=== PATIENT | female | born 1960 | race American Indian/Alaskan Native ===

== ENCOUNTER 2021-01-26 06:44 | Inpatient (IN) | payer OTHER ==
[2021-01-26] MEDS ORDERED: METOCLOPRAMIDE 10 MG/2 ML INJ IV ONE (09:50)
[2021-01-26] MEDS ORDERED: FAMOTIDINE 20 MG/2 ML INJ IV ONE (09:50)
[2021-01-26] MEDS ORDERED: DICYCLOMINE 20 MG TAB PO ONE (09:50)
[2021-01-26] MEDS ORDERED: SODIUM CHLORIDE 0.9% 1000 ML 1,000 ML IV ONE (09:50)
[2021-01-26] MEDS ORDERED: diphenhydrAMINE 50 MG/ML VIAL IV ONE (09:50)
[2021-01-26 11:41] LABS: Hematocrit 38.5 % (30.3-42.9); Hemoglobin 12.8 gm/dl (10.1-14.3); Mean Corpuscular HGB Conc 33 % (30-34); Mean Corpuscular Volume 83 fl (79-97); Platelet Count 218 K/mm3 (140-440); Red Blood Count 4.62 M/mm3 (3.65-5.03); Red Cell Distribution Width 13.5 % (13.2-15.2)
--- NOTE | 2021-01-26 12:11 | Emergency Department Report ---
ED Abdominal Pain HPI - General Chief Complaint: Abdominal Pain Stated Complaint: ABDOMINAL PAIN Time Seen by Provider: 01/26/21 09:35 Source: patient Mode of arrival: Ambulatory Limitations: No Limitations - History of Present Illness Initial Comments: This is a 60-year-old female nontoxic, well nourished in appearance, no acute signs of distress presents to the ED with c/o of nausea and abdominal pain several days. Patient denies any vomiting. Patient describes abdominal pain as cramping and aching with level of 8/10 diffuse. Patient denies chest pain, short of breath, fever, hemoptysis, blood in stool, chills, headache, stiff neck, numbness or tingling. Patient denies any diarrhea or constipation. Denies any blood in stool. Patient denies any recent travels. Patient denies any allergies. MD Complaint: abdominal pain -: days(s) Location: diffuse Radiation: none Migration to: no migration Severity: mild Severity scale (0 -10): 8 Quality: cramping, aching Consistency: constant Improves With: nothing Worsens With: nothing Associated Symptoms: nausea. denies: vomiting, diarrhea, fever, chills, constipation, dysuria, hematemesis, hematochezia, melena, hematuria, anorexia, syncope - Related Data Allergies Allergy/AdvReac Type Severity Reaction Status Date / Time No Known Allergies Allergy Unverified 01/26/21 06:51 ED Review of Systems ROS: Stated complaint: ABDOMINAL PAIN Other details as noted in HPI Comment: All other systems reviewed and negative Constitutional: denies: chills, fever Eyes: denies: eye pain, eye discharge, vision change ENT: denies: ear pain, throat pain Respiratory: denies: cough, shortness of breath, wheezing Cardiovascular: denies: chest pain, palpitations Endocrine: no symptoms reported Gastrointestinal: abdominal pain, nausea. denies: vomiting, diarrhea, constipation, hematemesis, melena, hematochezia Genitourinary: denies: urgency, dysuria, discharge Musculoskeletal: denies: back pain, joint swelling, arthralgia Skin: denies: rash, lesions Neurological: denies: headache, weakness, paresthesias Psychiatric: denies: anxiety, depression Hematological/Lymphatic: denies: easy bleeding, easy bruising ED Past Medical Hx - Past Medical History Previous Medical History?: Yes Hx Hypertension: Yes - Surgical History Additional Surgical History: tubal ligation - Social History Smoking Status: Current Every Day Smoker ED Physical Exam - General Limitations: No Limitations General appearance: alert, in no apparent distress - Head Head exam: Present: atraumatic, normocephalic - Eye Eye exam: Present: normal appearance - Neck Neck exam: Present: normal inspection, full ROM. Absent: lymphadenopathy - Respiratory Respiratory exam: Present: normal lung sounds bilaterally. Absent: respiratory distress, wheezes, rales, rhonchi, stridor, chest wall tenderness, accessory muscle use, decreased breath sounds, prolonged expiratory - Cardiovascular Cardiovascular Exam: Present: regular rate, normal rhythm, tachycardia, normal heart sounds. Absent: irregular rhythm, systolic murmur, diastolic murmur, rubs, gallop - GI/Abdominal GI/Abdominal exam: Present: soft, tenderness (Diffuse), normal bowel sounds. Absent: distended, guarding, rebound, rigid, diminished bowel sounds - Extremities Exam Extremities exam: Present: normal inspection, full ROM - Back Exam Back exam: Present: normal inspection, full ROM. Absent: tenderness, CVA tenderness (R), CVA tenderness (L), muscle spasm, paraspinal tenderness, vertebral tenderness, rash noted - Neurological Exam Neurological exam: Present: alert, oriented X3, normal gait - Psychiatric Psychiatric exam: Present: normal affect, normal mood - Skin Skin exam: Present: warm, dry, intact, normal color. Absent: rash ED Course Vital Signs 01/26/21 06:52 Temperature 97.8 F Pulse Rate 120 H Respiratory 18 Rate Blood Pressure 147/91 O2 Sat by Pulse 100 Oximetry - Reevaluation(s) Reevaluation #1: 01/26/21 12:10 Patient is speaking in full sentences with no signs of distress noted. - Consultations Consultation #1: 01/26/21 13:54 Patient has been consulted with Dr. Caryl V about patient history, physical exam, and labs/imaging results and accepts patient to services. ED Medical Decision Making - Lab Data Result diagrams: 01/26/21 10:40 01/26/21 10:40 Lab Results 01/26/21 01/26/21 Range/Units 10:40 10:40 WBC 20.4 H (4.5-11.0) K/mm3 RBC 4.62 (3.65-5.03) M/mm3 Hgb 12.8 (10.1-14.3) gm/dl Hct 38.5 (30.3-42.9) % MCV 83 (79-97) fl MCH 28 (28-32) pg MCHC 33 (30-34) % RDW 13.5 (13.2-15.2) % Plt Count 218 (140-440) K/mm3 Sodium 140 (137-145) mmol/L Potassium 4.3 (3.6-5.0) mmol/L Chloride 98.4 (98-107) mmol/L Carbon Dioxide 28 (22-30) mmol/L Anion Gap 18 mmol/L BUN 21 H (7-17) mg/dL Creatinine 1.3 H (0.6-1.2) mg/dL Estimated GFR 51 ml/min BUN/Creatinine Ratio 16 % Glucose 129 H (65-100) mg/dL Calcium 9.6 (8.4-10.2) mg/dL Total Bilirubin 1.00 (0.1-1.2) mg/dL AST 19 (5-40) units/L ALT 17 (7-56) units/L Alkaline Phosphatase 126 (35-129) units/L Total Protein 8.6 H (6.3-8.2) g/dL Albumin 4.4 (3.9-5) g/dL Albumin/Globulin Ratio 1.0 % Lipase 15 (13-60) units/L - Radiology Data [facility] [address] [place] [address] Cat Scan Report Signed Patient: ELLEN RANGEL MR#: [id number] 1 : 1960 Acct:[id number] Age/Sex: 60 / F ADM Date: 01/26/21 Loc: ED Attending Dr: Ordering Physician: YESENIA BAXTER NP Date of Service: 01/26/21 Procedure(s): CT abdomen pelvis w con Accession Number(s): [id number] cc: YESENIA BAXTER NP CT ABDOMEN AND PELVIS WITH CONTRAST HISTORY: MAIN. COMPARISON: None. TECHNIQUE: CT images of the abdomen and pelvis were obtained following administration of intravenous contrast. All CT scans at this location are performed using CT dose reduction for ALARA by means of automated exposure control. CONTRAST: 100 ml of intravenous contrast administered. FINDINGS: Lungs/bones: There is left lower lung pulmonary nodule measuring 6 mm. Abdomen/pelvis: There is fatty infiltration of the liver. Mild thickening of the adrenal glands. Spleen, pancreas, gallbladder appear normal. There is a left lower pole renal cyst. No hydronephrosis is seen. Mild after credit collector change of aorta. There is marked inflammatory change in the distal descending colon and sigmoid colon. No abscess is seen. Multiple diverticula are identified. No fluid collection is identified. IMPRESSION: 1. Acute diverticulitis of the distal descending colon and proximal sigmoid colon. No abscess or fluid collection. No free air. 2. Fatty infiltration of the liver. Signer Name: Reilly Mendez MD Signed: 01/26/2021 1: 05 PM Workstation Name: [id number] Transcribed By: CAMILLA Dictated By: ADELSO MENDEZ MD Electronically Authenticated By: ADELSO MENDEZ MD Signed Date/Time: 01/26/21 1305 DD/ 1302 TD/TT: - Medical Decision Making 60-year-old female that presents with acute diverticulitis. Patient is stable and was examined by me. Patient is notified of the CT and lab results with no questions noted by the patient. Patient received presentation to ER with IV antibiotics of Cipro and Flagyl. Patient admitted with hospitalist Dr. Hutson for further evaluation and treatment. At time of admission, the patient does not seem toxic or ill in appearance. No acute signs of distress noted. Patient agrees to admission treatment plan of care. No further questions noted by the patient. Critical care attestation.: If time is entered above; I have spent that time in minutes in the direct care of this critically ill patient, excluding procedure time. ED Disposition Clinical Impression: Acute diverticulitis Leukocytosis Qualifiers: Leukocytosis type: unspecified Qualified Code(s): D72.829 - Elevated white blood cell count, unspecified Disposition: OP ADMIT IP TO THIS HOSP Is pt being admited?: Yes Condition: Stable Instructions: Abdominal Pain (ED)
[2021-01-26 12:16] LABS: Albumin 4.4 g/dL (3.9-5); Calcium 9.6 mg/dL (8.4-10.2)
--- NOTE | 2021-01-26 13:10 | Cat Scan Report ---
CT ABDOMEN AND PELVIS WITH CONTRAST HISTORY: MAIN. COMPARISON: None. TECHNIQUE: CT images of the abdomen and pelvis were obtained following administration of intravenous contrast. All CT scans at this location are performed using CT dose reduction for ALARA by means of automated exposure control. CONTRAST: 100 ml of intravenous contrast administered. FINDINGS: Lungs/bones: There is left lower lung pulmonary nodule measuring 6 mm. Abdomen/pelvis: There is fatty infiltration of the liver. Mild thickening of the adrenal glands. Spl een, pancreas, gallbladder appear normal. There is a left lower pole renal cyst. No hydronephrosis is seen. Mild after air conditioning mechanic industrial change of aorta. There is marked inflammatory change in the distal descending colon and sigmoid colon. No abscess is s een. Multiple diverticula are identified. No fluid collection is identified. IMPRESSION: 1. Acute diverticulitis of the distal descending colon and proximal sigmoid colon. No abscess or flui d collection. No free air. 2. Fatty infiltration of the liver. Signer Name: Reilly Mendez MD Signed: 01/26/2021 1:05 PM Workstation Name: [id number]
[2021-01-26] MEDS ORDERED: metroNIDAZOLE/NS 500 MG/100 ML 500 MG/100 ML BAG IV ONE (13:14)
[2021-01-26 13:55] LABS: Band Neutrophils # (Manual) 0.4 K/mm3; Platelet Estimate Consistent w Auto; RBC Morphology Normal; Total Cells Counted 100
[2021-01-26 14:22] LABS: Bacteria,Urine 1+ /HPF (Negative); Bilirubin,Urine NEG (Negative); Blood,Urine NEG (Negative); Color,Urine Yellow (Yellow); Mucus,Urine FEW /HPF; Urobilinogen,Urine < 2.0 mg/dL (<2.0)
[2021-01-26] MEDS ORDERED: ONDANSETRON 4 MG/2 ML INJ IV PRN (17:18)
[2021-01-26] MEDS ORDERED: ACETAMINOPHEN 325 MG TAB PO PRN (17:18)
[2021-01-26] MEDS ORDERED: PIPERACIL/TAZOBACTA 4.5/NS 100 4.5 GM/100 ML VIAL IV SCH (18:00)
[2021-01-26] MEDS: D5W/0.9% NACL 1,000 ML IV SCH (18:22)
[2021-01-26] MEDS: HYDROmorphone 1 MG/1 ML INJ IV PRN ×2 (18:22→20:55)
[2021-01-26] MEDS: FAMOTIDINE 20 MG/2 ML INJ IV SCH (21:46)
[2021-01-26] MEDS: HEPARIN 5,000 UNIT/1 ML VIAL SUB-Q SCH (21:46)
--- NOTE | 2021-01-26 23:06 | History and Physical Report ---
History of Present Illness Date of examination: 01/26/21 Date of admission: 01/26/21 17:18 Chief complaint: Left lower quadrant pain for 2 days History of present illness: 60-year-old female with history of hypertension comes in for left lower quadrant pain for 1 week. Pain is about 8 on a scale of 1-10. Sharp and intermittent. Associated with nausea. Food is a exacerbating factor. No hematemesis or hematochezia. Cramping and sharp pain. Denies vomiting diarrhea fever chills constipation, dysuria, hematemesis, melena. There is the first episode. Never had any abdominal infections in the past. - Past Medical History Previous Medical History?: Yes --Hypertension: Yes - Surgical History Additional Surgical History: tubal ligation - Social History Smoking Status: Current Every Day Smoker Review of Systems ROS: Stated complaint: ABDOMINAL PAIN Other details as noted in HPI Comment: All other systems reviewed and negative Constitutional: denies: chills, fever Eyes: denies: eye pain, eye discharge, vision change ENT: denies: ear pain, throat pain Respiratory: denies: cough, shortness of breath, wheezing Cardiovascular: denies: chest pain, palpitations Endocrine: no symptoms reported Gastrointestinal: abdominal pain, nausea. denies: vomiting, diarrhea, constipa tion, hematemesis, melena, hematochezia Genitourinary: denies: urgency, dysuria, discharge Musculoskeletal: denies: back pain, joint swelling, arthralgia Skin: denies: rash, lesions Neurological: denies: headache, weakness, paresthesias Psychiatric: denies: anxiety, depression Hematological/Lymphatic: denies: easy bleeding, easy bruising Medications and Allergies Allergies Allergy/AdvReac Type Severity Reaction Status Date / Time No Known Allergies Allergy Unverified 01/26/21 06:51 Home Medications Medication Instructions Recorded Confirmed Last Taken Type AtorvaSTATin [Lipitor] 40 mg PO QHS 01/26/21 01/26/21 Unknown History Losartan [Cozaar] 100 mg PO QDAY 01/26/21 01/26/21 Unknown History Metformin HCl [Metformin HCl ER] 500 mg PO QDAY 01/26/21 01/26/21 Unknown History hydroCHLOROthiazide [HCTZ] 25 mg PO QDAY 01/26/21 01/26/21 Unknown History Active Meds: Active Medications Acetaminophen (Acetaminophen 325 Mg Tab) 650 mg PO Q4H PRN PRN Reason: Pain MILD(1-3)/Fever >100.5/STRINGER Famotidine (Famotidine 20 Mg/2 Ml Inj) 20 mg IV BID [facility] Last Admin: 01/26/21 21:46 Dose: 20 mg Documented by: Heparin Sodium (Porcine) (Heparin 5,000 Unit/1 Ml Vial) 5,000 unit SUB-Q Q12HR [facility] Last Admin: 01/26/21 21:46 Dose: 5,000 unit Documented by: Hydromorphone HCl (Hydromorphone 1 Mg/1 Ml Inj) 0.5 mg IV Q3H PRN PRN Reason: Pain , Severe (7-10) Last Admin: 01/26/21 20:55 Dose: 0.5 mg Documented by: Dextrose/Sodium Chloride (D5ns) 1,000 mls @ 75 mls/hr IV DIRECT [facility] Last Admin: 01/26/21 18:22 Dose: 75 mls/hr Documented by: Piperacillin Sod/Tazobactam Sod (Zosyn/Ns 4.5gm/100ml) 4.5 gm in 100 mls @ 200 mls/hr IV Q8H [facility]; Protocol Ondansetron HCl (Ondansetron 4 Mg/2 Ml Inj) 4 mg IV Q8H PRN PRN Reason: Nausea And Vomiting Sodium Chloride (Sodium Chloride 0.9% 10 Ml Flush Syringe) 10 ml IV BID [facility] Last Admin: 01/26/21 21:46 Dose: 10 ml Documented by: Sodium Chloride (Sodium Chloride 0.9% 10 Ml Flush Syringe) 10 ml IV PRN PRN PRN Reason: LINE FLUSH Exam - Constitutional Vitals: Temp Pulse Resp BP Pulse Ox 97.9 F 105 H 17 108/51 99 01/26/21 19:22 01/26/21 19:22 01/26/21 19:22 01/26/21 19:22 01/26/21 19:22 General appearance: Present: no acute distress, well-nourished - EENT Eyes: Present: PERRL ENT: hearing intact, clear oral mucosa - Neck Neck: Present: supple, normal ROM - Respiratory Respiratory effort: normal Respiratory: bilateral: CTA - Cardiovascular Heart rate: 78 Rhythm: regular Heart Sounds: Present: S1 & S2. Absent: rub, click - Extremities Extremities: no ischemia, pulses symmetrical, No edema Peripheral Pulses: within normal limits - Abdominal General gastrointestinal: Present: soft, tender (Tender in the left lower quadrant and left flank), non-distended, normal bowel sounds Localized gastrointestinal: tender: LLQ, guarding: LLQ, rebound: LLQ Female genitourinary: Present: normal - Integumentary Integumentary: Present: clear, warm, dry - Musculoskeletal Musculoskeletal: gait normal, strength equal bilaterally - Psychiatric Psychiatric: appropriate mood/affect, intact judgment & insight - Neurologic Neurologic: CNII-XII intact, moves all extremities Results - Labs CBC & Chem 7: 01/26/21 10:40 01/26/21 10:40 Labs: Laboratory Last Values WBC 20.4 K/mm3 (4.5-11.0) H 01/26/21 10:40 RBC 4.62 M/mm3 (3.65-5.03) 01/26/21 10:40 Hgb 12.8 gm/dl (10.1-14.3) 01/26/21 10:40 Hct 38.5 % (30.3-42.9) 01/26/21 10:40 MCV 83 fl (79-97) 01/26/21 10:40 MCH 28 pg (28-32) 01/26/21 10:40 MCHC 33 % (30-34) 01/26/21 10:40 RDW 13.5 % (13.2-15.2) 01/26/21 10:40 Plt Count 218 K/mm3 (140-440) 01/26/21 10:40 Add Manual Diff Complete 01/26/21 10:40 Total Counted 100 01/26/21 10:40 Seg Neuts % (Manual) 78.0 % (40.0-70.0) H 01/26/21 10:40 Band Neutrophils % 2.0 % 01/26/21 10:40 Lymphocytes % (Manual) 16.0 % (13.4-35.0) 01/26/21 10:40 Monocytes % (Manual) 3.0 % (0.0-7.3) 01/26/21 10:40 Metamyelocytes % 1.0 % 01/26/21 10:40 Nucleated RBC % Not Reportable 01/26/21 10:40 Seg Neutrophils # Man 15.9 K/mm3 (1.8-7.7) H 01/26/21 10:40 Band Neutrophils # 0.4 K/mm3 01/26/21 10:40 Lymphocytes # (Manual) 3.3 K/mm3 (1.2-5.4) 01/26/21 10:40 Abs React Lymphs (Man) 0.0 K/mm3 01/26/21 10:40 Monocytes # (Manual) 0.6 K/mm3 (0.0-0.8) 01/26/21 10:40 Eosinophils # (Manual) 0.0 K/mm3 (0.0-0.4) 01/26/21 10:40 Basophils # (Manual) 0.0 K/mm3 (0.0-0.1) 01/26/21 10:40 Metamyelocytes # 0.2 K/mm3 01/26/21 10:40 Myelocytes # 0.0 K/mm3 01/26/21 10:40 Promyelocytes # 0.0 K/mm3 01/26/21 10:40 Blast Cells # 0.0 K/mm3 01/26/21 10:40 WBC Morphology Not Reportable 01/26/21 10:40 Hypersegmented Neuts Not Reportable 01/26/21 10:40 Hyposegmented Neuts Not Reportable 01/26/21 10:40 Hypogranular Neuts Not Reportable 01/26/21 10:40 Smudge Cells Not Reportable 01/26/21 10:40 Toxic Granulation Not Reportable 01/26/21 10:40 Toxic Vacuolation Not Reportable 01/26/21 10:40 Dohle Bodies Not Reportable 01/26/21 10:40 Pelger-Huet Anomaly Not Reportable 01/26/21 10:40 Tobi Rods Not Reportable 01/26/21 10:40 Platelet Estimate Consistent w auto 01/26/21 10:40 Clumped Platelets Not Reportable 01/26/21 10:40 Plt Clumps, EDTA Not Reportable 01/26/21 10:40 Large Platelets Not Reportable 01/26/21 10:40 Giant Platelets Not Reportable 01/26/21 10:40 Platelet Satelliting Not Reportable 01/26/21 10:40 Plt Morphology Comment Not Reportable 01/26/21 10:40 RBC Morphology Normal 01/26/21 10:40 Dimorphic RBCs Not Reportable 01/26/21 10:40 Polychromasia Not Reportable 01/26/21 10:40 Hypochromasia Not Reportable 01/26/21 10:40 Poikilocytosis Not Reportable 01/26/21 10:40 Anisocytosis Not Reportable 01/26/21 10:40 Microcytosis Not Reportable 01/26/21 10:40 Macrocytosis Not Reportable 01/26/21 10:40 Spherocytes Not Reportable 01/26/21 10:40 Pappenheimer Bodies Not Reportable 01/26/21 10:40 Sickle Cells Not Reportable 01/26/21 10:40 Target Cells Not Reportable 01/26/21 10:40 Tear Drop Cells Not Reportable 01/26/21 10:40 Ovalocytes Not Reportable 01/26/21 10:40 Helmet Cells Not Reportable 01/26/21 10:40 [place] Bodies Not Reportable 01/26/21 10:40 Flushing Rings Not Reportable 01/26/21 10:40 Buchanan Cells Not Reportable 01/26/21 10:40 Bite Cells Not Reportable 01/26/21 10:40 Crenated Cell Not Reportable 01/26/21 10:40 Elliptocytes Not Reportable 01/26/21 10:40 Acanthocytes (Spur) Not Reportable 01/26/21 10:40 Rouleaux Not Reportable 01/26/21 10:40 Hemoglobin C Crystals Not Reportable 01/26/21 10:40 Schistocytes Not Reportable 01/26/21 10:40 Malaria parasites Not Reportable 01/26/21 10:40 Quan Bodies Not Reportable 01/26/21 10:40 Hem Pathologist Commnt No 01/26/21 10:40 Sodium 140 mmol/L (137-145) 01/26/21 10:40 Potassium 4.3 mmol/L (3.6-5.0) 01/26/21 10:40 Chloride 98.4 mmol/L (98-107) 01/26/21 10:40 Carbon Dioxide 28 mmol/L (22-30) 01/26/21 10:40 Anion Gap 18 mmol/L 01/26/21 10:40 BUN 21 mg/dL (7-17) H 01/26/21 10:40 Creatinine 1.3 mg/dL (0.6-1.2) H 01/26/21 10:40 Estimated GFR 51 ml/min 01/26/21 10:40 BUN/Creatinine Ratio 16 % 01/26/21 10:40 Glucose 129 mg/dL (65-100) H 01/26/21 10:40 Lactic Acid 2.50 mmol/L (0.7-2.0) H* 01/26/21 13:57 Calcium 9.6 mg/dL (8.4-10.2) 01/26/21 10:40 Total Bilirubin 1.00 mg/dL (0.1-1.2) 01/26/21 10:40 AST 19 units/L (5-40) 01/26/21 10:40 ALT 17 units/L (7-56) 01/26/21 10:40 Alkaline Phosphatase 126 units/L (35-129) 01/26/21 10:40 Total Protein 8.6 g/dL (6.3-8.2) H 01/26/21 10:40 Albumin 4.4 g/dL (3.9-5) 01/26/21 10:40 Albumin/Globulin Ratio 1.0 % 01/26/21 10:40 Lipase 15 units/L (13-60) 01/26/21 10:40 Urine Color Yellow (Yellow) 01/26/21 Unknown Urine Turbidity Cloudy (Clear) 01/26/21 Unknown Urine pH 6.0 (5.0-7.0) 01/26/21 Unknown Ur Specific [place] 1.010 (1.003-1.030) 01/26/21 Unknown Urine Protein 30 mg/dl mg/dL (Negative) 01/26/21 Unknown Urine Glucose (UA) Neg mg/dL (Negative) 01/26/21 Unknown Urine Ketones Neg mg/dL (Negative) 01/26/21 Unknown Urine Blood Neg (Negative) 01/26/21 Unknown Urine Nitrite Neg (Negative) 01/26/21 Unknown Urine Bilirubin Neg (Negative) 01/26/21 Unknown Urine Urobilinogen < 2.0 mg/dL (<2.0) 01/26/21 Unknown Ur Leukocyte Esterase Tr (Negative) 01/26/21 Unknown Urine WBC (Auto) 15.0 /HPF (0.0-6.0) H 01/26/21 Unknown Urine RBC (Auto) 3.0 /HPF (0.0-6.0) 01/26/21 Unknown U Epithel Cells (Auto) 27.0 /HPF (0-13.0) H 01/26/21 Unknown Urine Bacteria (Auto) 1+ /HPF (Negative) 01/26/21 Unknown Urine Mucus Few /HPF 01/26/21 Unknown Short CBC 01/26/21 Range/Units 10:40 WBC 20.4 H (4.5-11.0) K/mm3 Hgb 12.8 (10.1-14.3) gm/dl Hct 38.5 (30.3-42.9) % Plt Count 218 (140-440) K/mm3 BMP 01/26/21 10:40 Sodium 140 Potassium 4.3 Chloride 98.4 Carbon Dioxide 28 BUN 21 H Creatinine 1.3 H Glucose 129 H Calcium 9.6 Liver Function 01/26/21 Range/Units 10:40 Total Bilirubin 1.00 (0.1-1.2) mg/dL AST 19 (5-40) units/L ALT 17 (7-56) units/L Alkaline Phosphatase 126 (35-129) units/L Albumin 4.4 (3.9-5) g/dL Urine 01/26/21 Range/Units Unknown Urine Color Yellow (Yellow) Urine pH 6.0 (5.0-7.0) Ur Specific [place] 1.010 (1.003-1.030) Urine Protein 30 mg/dl (Negative) mg/dL Urine Glucose (UA) Neg (Negative) mg/dL Microbiology: Microbiology 01/26/21 13:57 Peripheral/Venous Blood Culture - Preliminary Culture in Progress 01/26/21 13:57 Peripheral/Venous Blood Culture - Preliminary Culture in Progress - Imaging and Cardiology CT scan - abdomen: report reviewed Imaging and Cardiology: Abdominal CAT scan Acute diverticulitis of the distal descending colon and proximal sigmoid colon. No abscess or fluid collection. No free air. Fatty infiltration of the liver. Assessment and Plan Advance Directives: Yes (Full code) VTE prophylaxis?: Chemical Plan of care discussed with patient/family: Yes - Patient Problems (1) SIRS (systemic inflammatory response syndrome) Current Visit: Yes Status: Acute Plan to address problem: Patient has leukocytosis and low-grade fever IV antibiotics for now (2) Acute diverticulitis Current Visit: Yes Status: Acute Plan to address problem: Patient initiated on IV Zosyn IV fluids Surgery consult Keep patient n.p.o. (3) DYAN (acute kidney injury) Current Visit: Yes Status: Acute Plan to address problem: IV fluids for now Secondary to vasomotor nephropathy (4) Hypertension Current Visit: Yes Status: Chronic Qualifiers: Hypertension type: essential hypertension Qualified Code(s): I10 - Essential (primary) hypertension Plan to address problem: Continue antihypertensives (5) Nicotine dependence Current Visit: Yes Status: Chronic Qualifiers: Nicotine product type: cigarettes Plan to address problem: Patient counseled about smoking cessation Refuses NicoDerm patch (6) DVT prophylaxis Current Visit: Yes Status: Acute Plan to address problem: On heparin and GI prophylaxis
[2021-01-27] MEDS: HYDROmorphone 1 MG/1 ML INJ IV PRN ×4 (00:37→23:42)
[2021-01-27] MEDS: PIPERACIL/TAZOBACTA 4.5/NS 100 4.5 GM/100 ML VIAL IV SCH ×3 (02:05→18:22)
[2021-01-27] MEDS: HEPARIN 5,000 UNIT/1 ML VIAL SUB-Q SCH ×3 (08:07→21:42)
[2021-01-27] MEDS: FAMOTIDINE 20 MG/2 ML INJ IV SCH ×3 (08:10→21:44)
[2021-01-27] MEDS: D5W/0.9% NACL 1,000 ML IV SCH (08:23)
[2021-01-27 08:25] LABS: Basophils % (Auto) 0.2 % (0.0-1.8); Eosinophils % (Auto) 0.3 % (0.0-4.3); Hematocrit 35.9 % (30.3-42.9); Hemoglobin 11.7 gm/dl (10.1-14.3); Mean Corpuscular HGB Conc 33 % (30-34); Mean Corpuscular Volume 83 fl (79-97); Monocytes % (Auto) 7.2 % (0.0-7.3); Platelet Count 179 K/mm3 (140-440); Red Blood Count 4.34 M/mm3 (3.65-5.03); Red Cell Distribution Width 13.5 % (13.2-15.2)
[2021-01-27 08:55] LABS: Albumin 3.4 g/dL (3.9-5); Calcium 8.3 mg/dL (8.4-10.2)
--- NOTE | 2021-01-27 10:52 | Consultation ---
History of Present Illness Consult date: 01/27/21 Reason for consult: abdominal pain - History of present illness History of present illness: 60 yo female with 1 week of LLQ pain which has been constant and progressive. Denies fever, chills, nausea, vomiting and hematochezia. No prior colonoscopy. No FH of colon cancer. This is her 1st episode of LLQ pain. Past History Past Medical History: diabetes, hypertension, hyperlipidemia Medications and Allergies Allergies Allergy/AdvReac Type Severity Reaction Status Date / Time No Known Allergies Allergy Unverified 01/26/21 06:51 Home Medications Medication Instructions Recorded Confirmed Last Taken Type AtorvaSTATin [Lipitor] 40 mg PO QHS 01/26/21 01/26/21 Unknown History Losartan [Cozaar] 100 mg PO QDAY 01/26/21 01/26/21 Unknown History Metformin HCl [Metformin HCl ER] 500 mg PO QDAY 01/26/21 01/26/21 Unknown History hydroCHLOROthiazide [HCTZ] 25 mg PO QDAY 01/26/21 01/26/21 Unknown History Active Meds: Active Medications Acetaminophen (Acetaminophen 325 Mg Tab) 650 mg PO Q4H PRN PRN Reason: Pain MILD(1-3)/Fever >100.5/STRINGER Famotidine (Famotidine 20 Mg/2 Ml Inj) 20 mg IV BID JUNIOR Last Admin: 01/27/21 08:10 Dose: 20 mg Documented by: Heparin Sodium (Porcine) (Heparin 5,000 Unit/1 Ml Vial) 5,000 unit SUB-Q Q12HR JUNIOR Last Admin: 01/27/21 08:07 Dose: 5,000 unit Documented by: Hydromorphone HCl (Hydromorphone 1 Mg/1 Ml Inj) 0.5 mg IV Q3H PRN PRN Reason: Pain , Severe (7-10) Last Admin: 01/27/21 04:51 Dose: 0.5 mg Documented by: Dextrose/Sodium Chloride (D5ns) 1,000 mls @ 75 mls/hr IV DIRECT JUNIOR Last Admin: 01/27/21 08:23 Dose: 75 mls/hr Documented by: Piperacillin Sod/Tazobactam Sod (Zosyn/Ns 4.5gm/100ml) 4.5 gm in 100 mls @ 200 mls/hr IV Q8H JUNIOR; Protocol Last Admin: 01/27/21 02:05 Dose: 200 mls/hr Documented by: Ondansetron HCl (Ondansetron 4 Mg/2 Ml Inj) 4 mg IV Q8H PRN PRN Reason: Nausea And Vomiting Sodium Chloride (Sodium Chloride 0.9% 10 Ml Flush Syringe) 10 ml IV BID JUNIOR Last Admin: 01/26/21 21:46 Dose: 10 ml Documented by: Sodium Chloride (Sodium Chloride 0.9% 10 Ml Flush Syringe) 10 ml IV PRN PRN PRN Reason: LINE FLUSH Review of Systems All systems: negative (none) Exam Vital Signs Temp Pulse Resp BP Pulse Ox 97.8 F 120 H 18 147/91 100 01/26/21 06:52 01/26/21 06:52 01/26/21 06:52 01/26/21 06:52 01/26/21 06:52 - General physical appearance Positive: well developed, well nourished, no distress - Eyes Positive: PERRL, normal occular movement - ENT Positive: normal pinna, normal nares, normal mucosa, no hearing loss, no congestion - Neck Positive: no masses, no bruits, trachea midline, no venous distension - Respiratory Positive: normal expansion, normal respiratory effort, clear to auscultation - Cardiovascular Rhythm: regular Heart Sounds: Present: S1 & S2. Absent: rub, click - Extremities Extremities: no ischemia, pulses symmetrical, No edema - Breasts Breasts: normal, no mass, no skin changes - Abdomen Abdomen: Present: soft, bowel sounds hypoactive, other (minimal LLQ tenderness without rebound or guarding). Absent: distended Hernia: none - Genitourinary Male Genitourinary: normal Female Genitourinary: normal - Integumentary no rash, no growths, no abnormal pigmentation - Neurologic Neurologic: alert and oriented to time, place and person, motor strength and sensation are grossly intact - Musculoskeletal normal gait, normal posture - Psychiatric Psychiatric: appropriate mood/affect, intact judgment & insight Results - Labs 01/27/21 08:05 01/27/21 08:05 Abnormal lab results 01/26/21 01/26/21 01/26/21 Range/Units 10:40 10:40 13:57 WBC 20.4 H (4.5-11.0) K/mm3 MCH (28-32) pg Lymph % (Auto) (13.4-35.0) % Lymph # (Auto) (1.2-5.4) K/mm3 [place] # (Auto) (0.0-0.8) K/mm3 Seg Neutrophils % (40.0-70.0) % Seg Neuts % (Manual) 78.0 H (40.0-70.0) % Seg Neutrophils # (1.8-7.7) K/mm3 Seg Neutrophils # Man 15.9 H (1.8-7.7) K/mm3 BUN 21 H (7-17) mg/dL Creatinine 1.3 H (0.6-1.2) mg/dL Glucose 129 H (65-100) mg/dL POC Glucose (70-105) mg/dL Hemoglobin A1c (4-6) % Lactic Acid 2.50 H* (0.7-2.0) mmol/L Calcium (8.4-10.2) mg/dL Total Protein 8.6 H (6.3-8.2) g/dL Albumin (3.9-5) g/dL Urine WBC (Auto) (0.0-6.0) /HPF U Epithel Cells (Auto) (0-13.0) /HPF 01/26/21 01/26/21 01/27/21 Range/Units 21:05 Unknown 07:44 WBC (4.5-11.0) K/mm3 MCH (28-32) pg Lymph % (Auto) (13.4-35.0) % Lymph # (Auto) (1.2-5.4) K/mm3 [place] # (Auto) (0.0-0.8) K/mm3 Seg Neutrophils % (40.0-70.0) % Seg Neuts % (Manual) (40.0-70.0) % Seg Neutrophils # (1.8-7.7) K/mm3 Seg Neutrophils # Man (1.8-7.7) K/mm3 BUN (7-17) mg/dL Creatinine (0.6-1.2) mg/dL Glucose (65-100) mg/dL POC Glucose 156 H 182 H (70-105) mg/dL Hemoglobin A1c (4-6) % Lactic Acid (0.7-2.0) mmol/L Calcium (8.4-10.2) mg/dL Total Protein (6.3-8.2) g/dL Albumin (3.9-5) g/dL Urine WBC (Auto) 15.0 H (0.0-6.0) /HPF U Epithel Cells (Auto) 27.0 H (0-13.0) /HPF 01/27/21 01/27/21 01/27/21 Range/Units 08:05 08:05 08:05 WBC 14.4 H (4.5-11.0) K/mm3 MCH 27 L (28-32) pg Lymph % (Auto) 7.0 L (13.4-35.0) % Lymph # (Auto) 1.0 L (1.2-5.4) K/mm3 [place] # (Auto) 1.0 H (0.0-0.8) K/mm3 Seg Neutrophils % 85.3 H (40.0-70.0) % Seg Neuts % (Manual) (40.0-70.0) % Seg Neutrophils # 12.3 H (1.8-7.7) K/mm3 Seg Neutrophils # Man (1.8-7.7) K/mm3 BUN 25 H (7-17) mg/dL Creatinine 2.0 H D (0.6-1.2) mg/dL Glucose 181 H (65-100) mg/dL POC Glucose (70-105) mg/dL Hemoglobin A1c 7.1 H (4-6) % Lactic Acid (0.7-2.0) mmol/L Calcium 8.3 L (8.4-10.2) mg/dL Total Protein (6.3-8.2) g/dL Albumin 3.4 L (3.9-5) g/dL Urine WBC (Auto) (0.0-6.0) /HPF U Epithel Cells (Auto) (0-13.0) /HPF Diabetes panel 01/26/21 01/27/21 01/27/21 Range/Units 10:40 08:05 08:05 Sodium 140 139 (137-145) mmol/L Potassium 4.3 4.3 (3.6-5.0) mmol/L Chloride 98.4 102.7 (98-107) mmol/L Carbon Dioxide 28 25 (22-30) mmol/L BUN 21 H 25 H (7-17) mg/dL Creatinine 1.3 H 2.0 H D (0.6-1.2) mg/dL Glucose 129 H 181 H (65-100) mg/dL Hemoglobin A1c 7.1 H (4-6) % Calcium 9.6 8.3 L (8.4-10.2) mg/dL AST 19 16 (5-40) units/L ALT 17 11 (7-56) units/L Alkaline Phosphatase 126 94 (35-129) units/L Total Protein 8.6 H 7.0 (6.3-8.2) g/dL Albumin 4.4 3.4 L (3.9-5) g/dL Calcium panel 01/26/21 01/27/21 Range/Units 10:40 08:05 Calcium 9.6 8.3 L (8.4-10.2) mg/dL Albumin 4.4 3.4 L (3.9-5) g/dL Pituitary panel 01/26/21 01/27/21 Range/Units 10:40 08:05 Sodium 140 139 (137-145) mmol/L Potassium 4.3 4.3 (3.6-5.0) mmol/L Chloride 98.4 102.7 (98-107) mmol/L Carbon Dioxide 28 25 (22-30) mmol/L BUN 21 H 25 H (7-17) mg/dL Creatinine 1.3 H 2.0 H D (0.6-1.2) mg/dL Glucose 129 H 181 H (65-100) mg/dL Calcium 9.6 8.3 L (8.4-10.2) mg/dL Adrenal panel 01/26/21 01/27/21 Range/Units 10:40 08:05 Sodium 140 139 (137-145) mmol/L Potassium 4.3 4.3 (3.6-5.0) mmol/L Chloride 98.4 102.7 (98-107) mmol/L Carbon Dioxide 28 25 (22-30) mmol/L BUN 21 H 25 H (7-17) mg/dL Creatinine 1.3 H 2.0 H D (0.6-1.2) mg/dL Glucose 129 H 181 H (65-100) mg/dL Calcium 9.6 8.3 L (8.4-10.2) mg/dL Total Bilirubin 1.00 0.80 (0.1-1.2) mg/dL AST 19 16 (5-40) units/L ALT 17 11 (7-56) units/L Alkaline Phosphatase 126 94 (35-129) units/L Total Protein 8.6 H 7.0 (6.3-8.2) g/dL Albumin 4.4 3.4 L (3.9-5) g/dL - Imaging CT scan - abdomen: report reviewed CT scan - pelvis: report reviewed Assessment and Plan - Patient Problems (1) Acute diverticulitis Current Visit: Yes Status: Acute Plan to address problem: 1) Continue NPO 2) Continue Zosyn 3) Strict DM control 4) CBC and BMP tomorrow 5) Will need outpt colonoscopy
--- NOTE | 2021-01-27 14:47 | Progress Note ---
Assessment and Plan Assessment and plan: Advance Directives: Yes (Full code) VTE prophylaxis?: Chemical Plan of care discussed with patient/family: Yes --Acute diverticulitis Current Visit: Yes Status: Acute Patient initiated on IV Zosyn IV fluids, pain management Surgery consult Keep patient n.p.o. --SIRS (systemic inflammatory response syndrome) Current Visit: Yes Status: Acute Patient has leukocytosis and low-grade fever IV antibiotics for now --DYAN (acute kidney injury) Current Visit: Yes Status: Acute IV fluids for now Secondary to vasomotor nephropathy --Hypertension Current Visit: Yes Status: Chronic Continue antihypertensives -- Nicotine dependence Current Visit: Yes Status: Chronic Patient counseled about smoking cessation Refuses NicoDerm patch --DVT prophylaxis Current Visit: Yes Status: Acute On heparin and GI prophylaxis Closely monitor the patient and adjust management as needed Plan of care reviewed with nurse History Interval history: I have seen and examined the patient at the bedside Patient's chart and medications reviewed Patient complains of vague abdominal pain Afebrile ,vital signs noted Hospitalist Physical - Constitutional Vitals: Temp Pulse Resp BP Pulse Ox 98.2 F 102 H 16 105/59 98 01/27/21 11:36 01/27/21 11:36 01/27/21 11:36 01/27/21 11:36 01/27/21 11:36 General appearance: Present: no acute distress, well-nourished - EENT Eyes: Present: PERRL, EOM intact - Neck Neck: Present: supple, normal ROM - Respiratory Respiratory effort: normal Respiratory: bilateral: diminished, negative: rales, rhonchi, wheezing - Cardiovascular Rhythm: regular Heart Sounds: Present: S1 & S2 - Extremities Extremities: no ischemia, No edema - Abdominal General gastrointestinal: soft, non-tender, non-distended, normal bowel sounds - Integumentary Integumentary: Present: clear, warm - Psychiatric Psychiatric: appropriate mood/affect, cooperative - Neurologic Neurologic: CNII-XII intact, moves all extremities Results - Labs CBC & Chem 7: 01/27/21 08:05 01/27/21 08:05 Labs: Laboratory Last Values WBC 14.4 K/mm3 (4.5-11.0) H 01/27/21 08:05 RBC 4.34 M/mm3 (3.65-5.03) 01/27/21 08:05 Hgb 11.7 gm/dl (10.1-14.3) 01/27/21 08:05 Hct 35.9 % (30.3-42.9) 01/27/21 08:05 MCV 83 fl (79-97) 01/27/21 08:05 MCH 27 pg (28-32) L 01/27/21 08:05 MCHC 33 % (30-34) 01/27/21 08:05 RDW 13.5 % (13.2-15.2) 01/27/21 08:05 Plt Count 179 K/mm3 (140-440) 01/27/21 08:05 Lymph % (Auto) 7.0 % (13.4-35.0) L 01/27/21 08:05 [place] % (Auto) 7.2 % (0.0-7.3) 01/27/21 08:05 Eos % (Auto) 0.3 % (0.0-4.3) 01/27/21 08:05 Baso % (Auto) 0.2 % (0.0-1.8) 01/27/21 08:05 Lymph # (Auto) 1.0 K/mm3 (1.2-5.4) L 01/27/21 08:05 [place] # (Auto) 1.0 K/mm3 (0.0-0.8) H 01/27/21 08:05 Eos # (Auto) 0.0 K/mm3 (0.0-0.4) 01/27/21 08:05 Baso # (Auto) 0.0 K/mm3 (0.0-0.1) 01/27/21 08:05 Add Manual Diff Complete 01/26/21 10:40 Total Counted 100 01/26/21 10:40 Seg Neutrophils % 85.3 % (40.0-70.0) H 01/27/21 08:05 Seg Neuts % (Manual) 78.0 % (40.0-70.0) H 01/26/21 10:40 Band Neutrophils % 2.0 % 01/26/21 10:40 Lymphocytes % (Manual) 16.0 % (13.4-35.0) 01/26/21 10:40 Monocytes % (Manual) 3.0 % (0.0-7.3) 01/26/21 10:40 Metamyelocytes % 1.0 % 01/26/21 10:40 Nucleated RBC % Not Reportable 01/26/21 10:40 Seg Neutrophils # 12.3 K/mm3 (1.8-7.7) H 01/27/21 08:05 Seg Neutrophils # Man 15.9 K/mm3 (1.8-7.7) H 01/26/21 10:40 Band Neutrophils # 0.4 K/mm3 01/26/21 10:40 Lymphocytes # (Manual) 3.3 K/mm3 (1.2-5.4) 01/26/21 10:40 Abs React Lymphs (Man) 0.0 K/mm3 01/26/21 10:40 Monocytes # (Manual) 0.6 K/mm3 (0.0-0.8) 01/26/21 10:40 Eosinophils # (Manual) 0.0 K/mm3 (0.0-0.4) 01/26/21 10:40 Basophils # (Manual) 0.0 K/mm3 (0.0-0.1) 01/26/21 10:40 Metamyelocytes # 0.2 K/mm3 01/26/21 10:40 Myelocytes # 0.0 K/mm3 01/26/21 10:40 Promyelocytes # 0.0 K/mm3 01/26/21 10:40 Blast Cells # 0.0 K/mm3 01/26/21 10:40 WBC Morphology Not Reportable 01/26/21 10:40 Hypersegmented Neuts Not Reportable 01/26/21 10:40 Hyposegmented Neuts Not Reportable 01/26/21 10:40 Hypogranular Neuts Not Reportable 01/26/21 10:40 Smudge Cells Not Reportable 01/26/21 10:40 Toxic Granulation Not Reportable 01/26/21 10:40 Toxic Vacuolation Not Reportable 01/26/21 10:40 Dohle Bodies Not Reportable 01/26/21 10:40 Pelger-Huet Anomaly Not Reportable 01/26/21 10:40 Tobi Rods Not Reportable 01/26/21 10:40 Platelet Estimate Consistent w auto 01/26/21 10:40 Clumped Platelets Not Reportable 01/26/21 10:40 Plt Clumps, EDTA Not Reportable 01/26/21 10:40 Large Platelets Not Reportable 01/26/21 10:40 Giant Platelets Not Reportable 01/26/21 10:40 Platelet Satelliting Not Reportable 01/26/21 10:40 Plt Morphology Comment Not Reportable 01/26/21 10:40 RBC Morphology Normal 01/26/21 10:40 Dimorphic RBCs Not Reportable 01/26/21 10:40 Polychromasia Not Reportable 01/26/21 10:40 Hypochromasia Not Reportable 01/26/21 10:40 Poikilocytosis Not Reportable 01/26/21 10:40 Anisocytosis Not Reportable 01/26/21 10:40 Microcytosis Not Reportable 01/26/21 10:40 Macrocytosis Not Reportable 01/26/21 10:40 Spherocytes Not Reportable 01/26/21 10:40 Pappenheimer Bodies Not Reportable 01/26/21 10:40 Sickle Cells Not Reportable 01/26/21 10:40 Target Cells Not Reportable 01/26/21 10:40 Tear Drop Cells Not Reportable 01/26/21 10:40 Ovalocytes Not Reportable 01/26/21 10:40 Helmet Cells Not Reportable 01/26/21 10:40 [place] Bodies Not Reportable 01/26/21 10:40 [place] Rings Not Reportable 01/26/21 10:40 [place] Cells Not Reportable 01/26/21 10:40 Bite Cells Not Reportable 01/26/21 10:40 Crenated Cell Not Reportable 01/26/21 10:40 Elliptocytes Not Reportable 01/26/21 10:40 Acanthocytes (Spur) Not Reportable 01/26/21 10:40 Rouleaux Not Reportable 01/26/21 10:40 Hemoglobin C Crystals Not Reportable 01/26/21 10:40 Schistocytes Not Reportable 01/26/21 10:40 Malaria parasites Not Reportable 01/26/21 10:40 Quna Bodies Not Reportable 01/26/21 10:40 Hem Pathologist Commnt No 01/26/21 10:40 Sodium 139 mmol/L (137-145) 01/27/21 08:05 Potassium 4.3 mmol/L (3.6-5.0) 01/27/21 08:05 Chloride 102.7 mmol/L (98-107) 01/27/21 08:05 Carbon Dioxide 25 mmol/L (22-30) 01/27/21 08:05 Anion Gap 16 mmol/L 01/27/21 08:05 BUN 25 mg/dL (7-17) H 01/27/21 08:05 Creatinine 2.0 mg/dL (0.6-1.2) H D 01/27/21 08:05 Estimated GFR 31 ml/min 01/27/21 08:05 BUN/Creatinine Ratio 13 % 01/27/21 08:05 Glucose 181 mg/dL (65-100) H 01/27/21 08:05 POC Glucose 182 mg/dL (70-105) H 01/27/21 07:44 Hemoglobin A1c 7.1 % (4-6) H 01/27/21 08:05 Lactic Acid 2.50 mmol/L (0.7-2.0) H* 01/26/21 13:57 Calcium 8.3 mg/dL (8.4-10.2) L 01/27/21 08:05 Total Bilirubin 0.80 mg/dL (0.1-1.2) 01/27/21 08:05 AST 16 units/L (5-40) 01/27/21 08:05 ALT 11 units/L (7-56) 01/27/21 08:05 Alkaline Phosphatase 94 units/L (35-129) 01/27/21 08:05 Total Protein 7.0 g/dL (6.3-8.2) 01/27/21 08:05 Albumin 3.4 g/dL (3.9-5) L 01/27/21 08:05 Albumin/Globulin Ratio 0.9 % 01/27/21 08:05 Lipase 15 units/L (13-60) 01/26/21 10:40 Urine Color Yellow (Yellow) 01/26/21 Unknown Urine Turbidity Cloudy (Clear) 01/26/21 Unknown Urine pH 6.0 (5.0-7.0) 01/26/21 Unknown Ur Specific [place] 1.010 (1.003-1.030) 01/26/21 Unknown Urine Protein 30 mg/dl mg/dL (Negative) 01/26/21 Unknown Urine Glucose (UA) Neg mg/dL (Negative) 01/26/21 Unknown Urine Ketones Neg mg/dL (Negative) 01/26/21 Unknown Urine Blood Neg (Negative) 01/26/21 Unknown Urine Nitrite Neg (Negative) 01/26/21 Unknown Urine Bilirubin Neg (Negative) 01/26/21 Unknown Urine Urobilinogen < 2.0 mg/dL (<2.0) 01/26/21 Unknown Ur Leukocyte Esterase Tr (Negative) 01/26/21 Unknown Urine WBC (Auto) 15.0 /HPF (0.0-6.0) H 01/26/21 Unknown Urine RBC (Auto) 3.0 /HPF (0.0-6.0) 01/26/21 Unknown U Epithel Cells (Auto) 27.0 /HPF (0-13.0) H 01/26/21 Unknown Urine Bacteria (Auto) 1+ /HPF (Negative) 01/26/21 Unknown Urine Mucus Few /HPF 01/26/21 Unknown Microbiology: Microbiology 01/26/21 Unknown Urine,Clean Catch Urine Culture - Preliminary 01/26/21 13:57 Peripheral/Venous Blood Culture - Preliminary Culture in Progress 01/26/21 13:57 Peripheral/Venous Blood Culture - Preliminary Culture in Progress Chaudhary/IV: Voiding Method Toilet Active Medications - Current Medications Current Medications: Generic Name Dose Route Start Last Admin Trade Name Freq PRN Reason Stop Dose Admin Acetaminophen 650 mg 01/26/21 17:18 Acetaminophen 325 Mg Tab PO Q4H PRN Pain MILD(1-3)/Fever >100.5/STRINGER Famotidine 10 mg 01/27/21 22:00 Famotidine 20 Mg/2 Ml Inj IV BID JUNIOR Heparin Sodium (Porcine) 5,000 unit 01/26/21 22:00 01/27/21 10:00 Heparin 5,000 Unit/1 Ml Vial SUB-Q Not Given Q12HR JUNIOR Hydromorphone HCl 0.5 mg 01/26/21 17:23 01/27/21 04:51 Hydromorphone 1 Mg/1 Ml Inj IV 0.5 mg Q3H PRN Administration Pain , Severe (7-10) Dextrose/Sodium Chloride 1,000 mls @ 75 mls/hr 01/26/21 18:00 01/27/21 08:23 D5ns IV 75 mls/hr DIRECT JUNIOR Administration Piperacillin Sod/Tazobactam Sod 4.5 gm in 100 mls @ 200 mls/hr 01/27/21 02:00 01/27/21 10:15 Zosyn/Ns 4.5gm/100ml IV 200 mls/hr Q8H JUNIOR Administration Protocol Ondansetron HCl 4 mg 01/26/21 17:18 Ondansetron 4 Mg/2 Ml Inj IV Q8H PRN Nausea And Vomiting Sodium Chloride 10 ml 01/26/21 22:00 01/27/21 11:46 Sodium Chloride 0.9% 10 Ml Flush Syringe IV Not Given BID JUNIOR Sodium Chloride 10 ml 01/26/21 17:18 Sodium Chloride 0.9% 10 Ml Flush Syringe IV PRN PRN LINE FLUSH Nutrition/Malnutrition Assess - Dietary Evaluation Nutrition/Malnutrition Findings: Nutrition Notes Start: 01/27/21 11:17 Freq: Status: Active Protocol: Document 01/27/21 11:17 NADEEM (Rec: 01/27/21 11:24 PAALL [id number]) Nutrition Notes Need for Assessment generated from: cotton converter Initial or Follow up Assessment Current Diagnosis Acute Kidney Injury,Diabetes, Hypertension Other Pertinent Diagnosis Acute diverticulitis, SIRS Current Diet NPO Labs/Tests BUN 25 Cr 2 A1C 7.1 Pertinent Medications D5 NS at 75ml/hr Height 5 ft 4 in Weight 109.7 kg [place] Body Weight (kg) 54.54 BMI 41.5 Intake Prior to Admission Poor Weight Status Morbidly Obese Subjective/Other Information Pt screened for new onset of DM. Pt reports that she recently started taking Metformin (a few months now) sec to elevated A1C. She reports last PO meal was 01/24. Burn Absent Trauma Absent GI Symptoms Nausea Current % PO Poor (25-49%) Minimum of two criteria No #1 Nutrition Diagnosis Altered GI function Etiology diverticulitis As Evidenced by Signs and Symptoms pt NPO; reports abdominal discomfort with PO intake Is patient on ventilator? No Is Patient Ambulatory and/or Out of Bed Yes REE-([place]-St. Jeor-ambulatory/OOB) [ 2154.100 [id number]] Kcal/Kg value to use for calculation 15 Approximate Energy Requirements Using 1646 kcal/Kg Calculation Used for Recommendations Kcal/kg Additional Notes Pro needs 0.8-1g/kg adjBW: 66- 82g/day Fluid needs 1ml/kcal Nutrition Intervention Change Diet Order: Advance diet when medically feasible Goal #1 Diet advancement to meet nutrient needs Anticipated Discharge Needs: CHO-controlled diet with adequate fiber intake Follow-Up By: 01/29/21 Additional Comments F/U: diet advancement, diet education (Food sources of CHO ; High Fiber diet when diverticulitis subsides)
[2021-01-28] MEDS: D5W/0.9% NACL 1,000 ML IV SCH ×3 (00:15→18:46)
[2021-01-28] MEDS: PIPERACIL/TAZOBACTA 4.5/NS 100 4.5 GM/100 ML VIAL IV SCH ×3 (02:12→18:52)
[2021-01-28 05:07] LABS: Basophils % (Auto) 0.3 % (0.0-1.8); Eosinophils # (Auto) 0.1 K/mm3 (0.0-0.4); Hematocrit 33.4 % (30.3-42.9); Lymphocytes # (Auto) 1.6 K/mm3 (1.2-5.4); Lymphocytes % (Auto) 13.6 % (13.4-35.0); Mean Corpuscular HGB Conc 33 % (30-34); Mean Corpuscular Volume 82 fl (79-97); Monocytes # (Auto) 0.7 K/mm3 (0.0-0.8); Monocytes % (Auto) 6.5 % (0.0-7.3); Platelet Count 183 K/mm3 (140-440); Red Blood Count 4.06 M/mm3 (3.65-5.03); Red Cell Distribution Width 13.5 % (13.2-15.2)
[2021-01-28 05:53] LABS: BUN/Creatinine Ratio 13; Blood Urea Nitrogen 14 mg/dL (7-17); Calcium 8.2 mg/dL (8.4-10.2); Hemolysis Index 0
[2021-01-28] MEDS: FAMOTIDINE 20 MG/2 ML INJ IV SCH ×2 (11:05→21:14)
[2021-01-28] MEDS: HYDROmorphone 1 MG/1 ML INJ IV PRN (11:05)
[2021-01-28] MEDS: HEPARIN 5,000 UNIT/1 ML VIAL SUB-Q SCH ×2 (11:06→21:14)
--- NOTE | 2021-01-28 11:34 | Progress Note ---
Assessment and Plan Assessment and plan: --Acute diverticulitis Current Visit: Yes Status: Acute Patient initiated on IV Zosyn IV fluids, pain management Surgery evaluation noted and appreciated Started clear liquids today, will advance tomorrow as tolerated Patient may need interval colonoscopy as outpatient --SIRS (systemic inflammatory response syndrome) Current Visit: Yes Status: Acute Patient has leukocytosis and low-grade fever Continue IV antibiotics , leukocytosis trending down --DYAN (acute kidney injury) Current Visit: Yes Status: Acute Resolved, continue gentle hydration Secondary to vasomotor nephropathy --Hypertension/moderate control Current Visit: Yes Status: Chronic Continue antihypertensives Closely monitor blood pressures -- Nicotine dependence Current Visit: Yes Status: Chronic Patient counseled about smoking cessation Advised nicotine patch, patient refused --DVT prophylaxis Current Visit: Yes Status: Acute On heparin and GI prophylaxis Closely monitor the patient and adjust management as needed Plan of care reviewed with the patient and his nurse Possible discharge in 1 to 2 days if stable I also discussed with [place] physician Dr. Jeronimo at [phone] Agreed with patient's inpatient status and treatment plan History Interval history: I have seen and examined the patient at the bedside Patient's chart and medications reviewed Patient feels slightly better, pain significantly improved Surgery started clear liquids, patient is tolerating well Vital signs noted Hospitalist Physical - Constitutional Vitals: Temp Pulse Resp BP Pulse Ox 99.0 F 91 H 18 119/75 100 01/28/21 07:47 01/28/21 07:47 01/28/21 07:47 01/28/21 07:47 01/28/21 07:47 General appearance: Present: no acute distress, well-nourished - EENT Eyes: Present: PERRL, EOM intact - Neck Neck: Present: supple, normal ROM - Respiratory Respiratory effort: normal Respiratory: bilateral: diminished, negative: rales, rhonchi, wheezing - Cardiovascular Rhythm: regular Heart Sounds: Present: S1 & S2 - Extremities Extremities: no ischemia, No edema - Abdominal General gastrointestinal: soft, non-tender, non-distended, normal bowel sounds - Integumentary Integumentary: Present: clear, warm - Psychiatric Psychiatric: appropriate mood/affect, cooperative - Neurologic Neurologic: CNII-XII intact, moves all extremities Results - Labs CBC & Chem 7: 01/28/21 04:46 01/28/21 04:46 Labs: Laboratory Last Values WBC 11.4 K/mm3 (4.5-11.0) H 01/28/21 04:46 RBC 4.06 M/mm3 (3.65-5.03) 01/28/21 04:46 Hgb 11.0 gm/dl (10.1-14.3) 01/28/21 04:46 Hct 33.4 % (30.3-42.9) 01/28/21 04:46 MCV 82 fl (79-97) 01/28/21 04:46 MCH 27 pg (28-32) L 01/28/21 04:46 MCHC 33 % (30-34) 01/28/21 04:46 RDW 13.5 % (13.2-15.2) 01/28/21 04:46 Plt Count 183 K/mm3 (140-440) 01/28/21 04:46 Lymph % (Auto) 13.6 % (13.4-35.0) 01/28/21 04:46 [place] % (Auto) 6.5 % (0.0-7.3) 01/28/21 04:46 Eos % (Auto) 1.0 % (0.0-4.3) 01/28/21 04:46 Baso % (Auto) 0.3 % (0.0-1.8) 01/28/21 04:46 Lymph # (Auto) 1.6 K/mm3 (1.2-5.4) 01/28/21 04:46 [place] # (Auto) 0.7 K/mm3 (0.0-0.8) 01/28/21 04:46 Eos # (Auto) 0.1 K/mm3 (0.0-0.4) 01/28/21 04:46 Baso # (Auto) 0.0 K/mm3 (0.0-0.1) 01/28/21 04:46 Add Manual Diff Complete 01/26/21 10:40 Total Counted 100 01/26/21 10:40 Seg Neutrophils % 78.6 % (40.0-70.0) H 01/28/21 04:46 Seg Neuts % (Manual) 78.0 % (40.0-70.0) H 01/26/21 10:40 Band Neutrophils % 2.0 % 01/26/21 10:40 Lymphocytes % (Manual) 16.0 % (13.4-35.0) 01/26/21 10:40 Monocytes % (Manual) 3.0 % (0.0-7.3) 01/26/21 10:40 Metamyelocytes % 1.0 % 01/26/21 10:40 Nucleated RBC % Not Reportable 01/26/21 10:40 Seg Neutrophils # 9.0 K/mm3 (1.8-7.7) H 01/28/21 04:46 Seg Neutrophils # Man 15.9 K/mm3 (1.8-7.7) H 01/26/21 10:40 Band Neutrophils # 0.4 K/mm3 01/26/21 10:40 Lymphocytes # (Manual) 3.3 K/mm3 (1.2-5.4) 01/26/21 10:40 Abs React Lymphs (Man) 0.0 K/mm3 01/26/21 10:40 Monocytes # (Manual) 0.6 K/mm3 (0.0-0.8) 01/26/21 10:40 Eosinophils # (Manual) 0.0 K/mm3 (0.0-0.4) 01/26/21 10:40 Basophils # (Manual) 0.0 K/mm3 (0.0-0.1) 01/26/21 10:40 Metamyelocytes # 0.2 K/mm3 01/26/21 10:40 Myelocytes # 0.0 K/mm3 01/26/21 10:40 Promyelocytes # 0.0 K/mm3 01/26/21 10:40 Blast Cells # 0.0 K/mm3 01/26/21 10:40 WBC Morphology Not Reportable 01/26/21 10:40 Hypersegmented Neuts Not Reportable 01/26/21 10:40 Hyposegmented Neuts Not Reportable 01/26/21 10:40 Hypogranular Neuts Not Reportable 01/26/21 10:40 Smudge Cells Not Reportable 01/26/21 10:40 Toxic Granulation Not Reportable 01/26/21 10:40 Toxic Vacuolation Not Reportable 01/26/21 10:40 Dohle Bodies Not Reportable 01/26/21 10:40 Pelger-Huet Anomaly Not Reportable 01/26/21 10:40 Tobi Rods Not Reportable 01/26/21 10:40 Platelet Estimate Consistent w auto 01/26/21 10:40 Clumped Platelets Not Reportable 01/26/21 10:40 Plt Clumps, EDTA Not Reportable 01/26/21 10:40 Large Platelets Not Reportable 01/26/21 10:40 Giant Platelets Not Reportable 01/26/21 10:40 Platelet Satelliting Not Reportable 01/26/21 10:40 Plt Morphology Comment Not Reportable 01/26/21 10:40 RBC Morphology Normal 01/26/21 10:40 Dimorphic RBCs Not Reportable 01/26/21 10:40 Polychromasia Not Reportable 01/26/21 10:40 Hypochromasia Not Reportable 01/26/21 10:40 Poikilocytosis Not Reportable 01/26/21 10:40 Anisocytosis Not Reportable 01/26/21 10:40 Microcytosis Not Reportable 01/26/21 10:40 Macrocytosis Not Reportable 01/26/21 10:40 Spherocytes Not Reportable 01/26/21 10:40 Pappenheimer Bodies Not Reportable 01/26/21 10:40 Sickle Cells Not Reportable 01/26/21 10:40 Target Cells Not Reportable 01/26/21 10:40 Tear Drop Cells Not Reportable 01/26/21 10:40 Ovalocytes Not Reportable 01/26/21 10:40 Helmet Cells Not Reportable 01/26/21 10:40 Santos-Naturita Bodies Not Reportable 01/26/21 10:40 [place] Rings Not Reportable 01/26/21 10:40 [place] Cells Not Reportable 01/26/21 10:40 Bite Cells Not Reportable 01/26/21 10:40 Crenated Cell Not Reportable 01/26/21 10:40 Elliptocytes Not Reportable 01/26/21 10:40 Acanthocytes (Spur) Not Reportable 01/26/21 10:40 Rouleaux Not Reportable 01/26/21 10:40 Hemoglobin C Crystals Not Reportable 01/26/21 10:40 Schistocytes Not Reportable 01/26/21 10:40 Malaria parasites Not Reportable 01/26/21 10:40 Quan Bodies Not Reportable 01/26/21 10:40 Hem Pathologist Commnt No 01/26/21 10:40 Sodium 139 mmol/L (137-145) 01/28/21 04:46 Potassium 3.4 mmol/L (3.6-5.0) L D 01/28/21 04:46 Chloride 104.2 mmol/L (98-107) 01/28/21 04:46 Carbon Dioxide 23 mmol/L (22-30) 01/28/21 04:46 Anion Gap 15 mmol/L 01/28/21 04:46 BUN 14 mg/dL (7-17) 01/28/21 04:46 Creatinine 1.1 mg/dL (0.6-1.2) 01/28/21 04:46 Estimated GFR > 60 ml/min 01/28/21 04:46 BUN/Creatinine Ratio 13 % 01/28/21 04:46 Glucose 160 mg/dL (65-100) H 01/28/21 04:46 POC Glucose 163 mg/dL (70-105) H 01/28/21 07:48 Hemoglobin A1c 7.1 % (4-6) H 01/27/21 08:05 Lactic Acid 2.50 mmol/L (0.7-2.0) H* 01/26/21 13:57 Calcium 8.2 mg/dL (8.4-10.2) L 01/28/21 04:46 Total Bilirubin 0.80 mg/dL (0.1-1.2) 01/27/21 08:05 AST 16 units/L (5-40) 01/27/21 08:05 ALT 11 units/L (7-56) 01/27/21 08:05 Alkaline Phosphatase 94 units/L (35-129) 01/27/21 08:05 Total Protein 7.0 g/dL (6.3-8.2) 01/27/21 08:05 Albumin 3.4 g/dL (3.9-5) L 01/27/21 08:05 Albumin/Globulin Ratio 0.9 % 01/27/21 08:05 Lipase 15 units/L (13-60) 01/26/21 10:40 Urine Color Yellow (Yellow) 01/26/21 Unknown Urine Turbidity Cloudy (Clear) 01/26/21 Unknown Urine pH 6.0 (5.0-7.0) 01/26/21 Unknown Ur Specific [place] 1.010 (1.003-1.030) 01/26/21 Unknown Urine Protein 30 mg/dl mg/dL (Negative) 01/26/21 Unknown Urine Glucose (UA) Neg mg/dL (Negative) 01/26/21 Unknown Urine Ketones Neg mg/dL (Negative) 01/26/21 Unknown Urine Blood Neg (Negative) 01/26/21 Unknown Urine Nitrite Neg (Negative) 01/26/21 Unknown Urine Bilirubin Neg (Negative) 01/26/21 Unknown Urine Urobilinogen < 2.0 mg/dL (<2.0) 01/26/21 Unknown Ur Leukocyte Esterase Tr (Negative) 01/26/21 Unknown Urine WBC (Auto) 15.0 /HPF (0.0-6.0) H 01/26/21 Unknown Urine RBC (Auto) 3.0 /HPF (0.0-6.0) 01/26/21 Unknown U Epithel Cells (Auto) 27.0 /HPF (0-13.0) H 01/26/21 Unknown Urine Bacteria (Auto) 1+ /HPF (Negative) 01/26/21 Unknown Urine Mucus Few /HPF 01/26/21 Unknown Microbiology: Microbiology 01/26/21 13:57 Peripheral/Venous Blood Culture - Preliminary NO GROWTH AFTER 24 HOURS 01/26/21 13:57 Peripheral/Venous Blood Culture - Preliminary NO GROWTH AFTER 24 HOURS 01/26/21 Unknown Urine,Clean Catch Urine Culture - Preliminary Chaudhary/IV: Voiding Method Toilet Active Medications - Current Medications Current Medications: Generic Name Dose Route Start Last Admin Trade Name Freq PRN Reason Stop Dose Admin Acetaminophen 650 mg 01/26/21 17:18 Acetaminophen 325 Mg Tab PO Q4H PRN Pain MILD(1-3)/Fever >100.5/STRINGER Famotidine 10 mg 01/27/21 22:00 01/28/21 11:05 Famotidine 20 Mg/2 Ml Inj IV 10 mg BID JUNIOR Administration Heparin Sodium (Porcine) 5,000 unit 01/26/21 22:00 01/28/21 11:06 Heparin 5,000 Unit/1 Ml Vial SUB-Q 5,000 unit Q12HR JUNIOR Administration Hydromorphone HCl 0.5 mg 01/26/21 17:23 01/28/21 11:05 Hydromorphone 1 Mg/1 Ml Inj IV 0.5 mg Q3H PRN Administration Pain , Severe (7-10) Dextrose/Sodium Chloride 1,000 mls @ 75 mls/hr 01/26/21 18:00 01/28/21 09:02 D5ns IV 75 mls/hr DIRECT JUNIOR Administration Piperacillin Sod/Tazobactam Sod 4.5 gm in 100 mls @ 200 mls/hr 01/27/21 02:00 01/28/21 11:04 Zosyn/Ns 4.5gm/100ml IV 200 mls/hr Q8H JUNIOR Administration Protocol Ondansetron HCl 4 mg 01/26/21 17:18 Ondansetron 4 Mg/2 Ml Inj IV Q8H PRN Nausea And Vomiting Potassium Chloride 40 meq 01/28/21 11:32 Potassium Chloride Er 20 Meq Tab PO 01/28/21 11:33 ONCE ONE Sodium Chloride 10 ml 01/26/21 22:00 01/27/21 21:43 Sodium Chloride 0.9% 10 Ml Flush Syringe IV 10 ml BID JUNIOR Administration Sodium Chloride 10 ml 01/26/21 17:18 Sodium Chloride 0.9% 10 Ml Flush Syringe IV PRN PRN LINE FLUSH Nutrition/Malnutrition Assess - Dietary Evaluation Nutrition/Malnutrition Findings: Nutrition Notes Start: 01/27/21 11:17 Freq: Status: Active Protocol: Document 01/27/21 11:17 NADEEM (Rec: 01/27/21 11:24 NADEEM [id number]) Nutrition Notes Need for Assessment generated from: sidehand Initial or Follow up Assessment Current Diagnosis Acute Kidney Injury,Diabetes, Hypertension Other Pertinent Diagnosis Acute diverticulitis, SIRS Current Diet NPO Labs/Tests BUN 25 Cr 2 A1C 7.1 Pertinent Medications D5 NS at 75ml/hr Height 5 ft 4 in Weight 109.7 kg [place] Body Weight (kg) 54.54 BMI 41.5 Intake Prior to Admission Poor Weight Status Morbidly Obese Subjective/Other Information Pt screened for new onset of DM. Pt reports that she recently started taking Metformin (a few months now) sec to elevated A1C. She reports last PO meal was 01/24. Burn Absent Trauma Absent GI Symptoms Nausea Current % PO Poor (25-49%) Minimum of two criteria No #1 Nutrition Diagnosis Altered GI function Etiology diverticulitis As Evidenced by Signs and Symptoms pt NPO; reports abdominal discomfort with PO intake Is patient on ventilator? No Is Patient Ambulatory and/or Out of Bed Yes [facility] [ 2154.100 NUTR.[id number]] Kcal/Kg value to use for calculation 15 Approximate Energy Requirements Using 1646 kcal/Kg Calculation Used for Recommendations Kcal/kg Additional Notes Pro needs 0.8-1g/kg adjBW: 66- 82g/day Fluid needs 1ml/kcal Nutrition Intervention Change Diet Order: Advance diet when medically feasible Goal #1 Diet advancement to meet nutrient needs Anticipated Discharge Needs: CHO-controlled diet with adequate fiber intake Follow-Up By: 01/29/21 Additional Comments F/U: diet advancement, diet education (Food sources of CHO ; High Fiber diet when diverticulitis subsides)
--- NOTE | 2021-01-28 11:55 | Progress Note ---
Assessment and Plan - Patient Problems (1) Acute diverticulitis Current Visit: Yes Status: Acute Plan to address problem: 1) CLD 2) CBC in the am Subjective Date of service: 01/28/21 Patient Reports: Positive: no new complaints, feels better, pain is less Objective Vital Signs - 12hr 01/28/21 01/28/21 05:13 07:47 Temperature 98.6 F 99.0 F Pulse Rate 86 91 H Respiratory 18 18 Rate Blood Pressure 100/65 119/75 O2 Sat by Pulse 100 100 Oximetry - Abdomen soft, bowel sounds hypoactive (Minimally TTP without rebound or guarding) - Labs 01/28/21 04:46 01/28/21 04:46 Diabetes panel 01/28/21 Range/Units 04:46 Sodium 139 (137-145) mmol/L Potassium 3.4 L D (3.6-5.0) mmol/L Chloride 104.2 (98-107) mmol/L Carbon Dioxide 23 (22-30) mmol/L BUN 14 (7-17) mg/dL Creatinine 1.1 (0.6-1.2) mg/dL Glucose 160 H (65-100) mg/dL Calcium 8.2 L (8.4-10.2) mg/dL Calcium panel 01/28/21 Range/Units 04:46 Calcium 8.2 L (8.4-10.2) mg/dL Pituitary panel 01/28/21 Range/Units 04:46 Sodium 139 (137-145) mmol/L Potassium 3.4 L D (3.6-5.0) mmol/L Chloride 104.2 (98-107) mmol/L Carbon Dioxide 23 (22-30) mmol/L BUN 14 (7-17) mg/dL Creatinine 1.1 (0.6-1.2) mg/dL Glucose 160 H (65-100) mg/dL Calcium 8.2 L (8.4-10.2) mg/dL Adrenal panel 01/28/21 Range/Units 04:46 Sodium 139 (137-145) mmol/L Potassium 3.4 L D (3.6-5.0) mmol/L Chloride 104.2 (98-107) mmol/L Carbon Dioxide 23 (22-30) mmol/L BUN 14 (7-17) mg/dL Creatinine 1.1 (0.6-1.2) mg/dL Glucose 160 H (65-100) mg/dL Calcium 8.2 L (8.4-10.2) mg/dL
[2021-01-28] MEDS ORDERED: POTASSIUM CHLORIDE ER 20 MEQ TAB PO SCH (13:00)
--- NOTE | 2021-01-28 15:15 | Event Note ---
Date: 01/28/21 I called [facility] physician Dr. Bruner at [phone] and discussed about the patient , admitting diagnosis, tests and reports, treatment plan Answered all her questions, and informed her that most probably patient may be discharged in 1 to 2 days if stable. [place] physician agreed with the treatment plan. I informed patient's nurse my above conversation with the [place] physician.
[2021-01-29] MEDS: PIPERACIL/TAZOBACTA 4.5/NS 100 4.5 GM/100 ML VIAL IV SCH ×2 (02:00→10:38)
[2021-01-29] MEDS: D5W/0.9% NACL 1,000 ML IV SCH (03:59)
[2021-01-29 06:07] LABS: Basophils % (Auto) 0.6 % (0.0-1.8); Eosinophils # (Auto) 0.2 K/mm3 (0.0-0.4); Hematocrit 32.5 % (30.3-42.9); Hemoglobin 10.9 gm/dl (10.1-14.3); Lymphocytes # (Auto) 1.4 K/mm3 (1.2-5.4); Lymphocytes % (Auto) 20.3 % (13.4-35.0); Mean Corpuscular HGB Conc 34 % (30-34); Mean Corpuscular Volume 83 fl (79-97); Monocytes # (Auto) 0.7 K/mm3 (0.0-0.8); Monocytes % (Auto) 9.9 % (0.0-7.3); Platelet Count 191 K/mm3 (140-440); Red Blood Count 3.94 M/mm3 (3.65-5.03); Red Cell Distribution Width 13.5 % (13.2-15.2)
[2021-01-29] MEDS: FAMOTIDINE 20 MG/2 ML INJ IV SCH (11:38)
[2021-01-29] MEDS: HEPARIN 5,000 UNIT/1 ML VIAL SUB-Q SCH (11:40)
--- NOTE | 2021-01-29 19:09 | Progress Note ---
Assessment and Plan - Patient Problems (1) Acute diverticulitis Current Visit: Yes Status: Acute Plan to address problem: 1) Pt can be discharged from my perspective. 2) High fiber diet 3) Levaquin, 500 mg po qday X 7 days 4) F/u in my office in 2 weeks 5) Colonoscopy in 6 weeks as pt has never had a colonoscopy Subjective Date of service: 01/29/21 Patient Reports: Positive: no new complaints, feels better, tolerating liquids well, flatus, bowel movement (Denies abdominal pain.) Objective Vital Signs - 12hr 01/29/21 01/29/21 07:35 17:47 Temperature 98.3 F 98.5 F Pulse Rate 96 H Respiratory 18 18 Rate Blood Pressure 153/83 172/93 O2 Sat by Pulse 99 Oximetry - Abdomen soft, bowel sounds normal (NT) - Labs 01/29/21 05:45 01/28/21 04:46
--- NOTE | 2021-01-29 19:16 | Discharge Summary ---
Providers - Providers Date of Admission: 01/26/21 17:18 Date of discharge: 01/29/21 Attending physician: CLAYTON DE 01/26/21 23:05 Consult to Physician [CONS] Routine Comment: Consulting Provider: MATT MONTGOMERY Physician Instructions: Reason For Exam: Acute diverticulitis Hospitalization Reason for admission: Left lower quadrant pain for 2 days Condition: Stable Pertinent studies: CT abdomen and pelvis Hospital course: 60-year-old female with history of hypertension comes in for left lower quadrant pain for 1 week. Pain is about 8 on a scale of 1-10. Sharp and intermittent. Associated with nausea. Food is a exacerbating factor. No hematemesis or hematochezia. Cramping and sharp pain. Denies vomiting diarrhea fever chills constipation, dysuria, hematemesis, melena. There is the first episode. Never had any abdominal infections in the past. Initial work-up with CT abdomen and pelvis findings consistent with acute diverticulitis. Patient was placed n.p.o. status, admitted to the hospital, managed with IV fluids IV antibiotics supportive care Evaluated by surgery, as his symptoms slowly improved started clear liquid diet. Patient symptoms significantly improved Today she is comfortable no new complaints , vital signs stable. physical examination unremarkable Patient is ambulatory and tolerating oral nutrition clear liquids advance to full liquids Recommended high-fiber diet, follow-up with GI/surgeon in 2 weeks Patient never had colonoscopy in the past ,may need colonoscopy after 4 to 6 weeks Cleared by surgery ,patient is hemodynamically and clinically stable at discharge Discharge diagnosis; --Acute diverticulitis Current Visit: Yes Status: Acute Patient initiated on IV Zosyn IV fluids, pain management Surgery evaluated and followed the patient Started clear liquids advance to full liquids as tolerated Patient may need interval colonoscopy as outpatient --SIRS (systemic inflammatory response syndrome) Current Visit: Yes Status: Acute Patient has leukocytosis and low-grade fever Continue IV antibiotics , leukocytosis trending down --DYAN (acute kidney injury) Current Visit: Yes Status: Acute Resolved, continue gentle hydration Secondary to vasomotor nephropathy --Hypertension/moderate control Current Visit: Yes Status: Chronic Continue antihypertensives Closely monitor blood pressures --Morbid obesity BMI 41.4 Current Visit: Yes Status: Chronic Patient needs weight reduction and medically stable --Type 2 diabetes mellitus; moderate controlled continue oral hypoglycemics after discharge A1c 7.1 -- Nicotine dependence Current Visit: Yes Status: Chronic Patient counseled about smoking cessation Advised nicotine patch, patient refused Smoking cessation counseling done advised nicotine patch Patient also advised dietary modification exercise as tolerated and weight reduction When medically stable Patient verbalized understanding Stable at discharge Disposition: DC-01 TO HOME OR SELFCARE Final Discharge Diagnosis (Prints w/discharge instructions): Acute di verticulitis. SIRS. Acute kidney injury resolved. Hypertension. Type 2 diabetes mellitus. Ongoing tobacco use. Morbid obesity BMI 41.4 Time spent for discharge: 35 min Core Measure Documentation - Palliative Care Palliative Care/ Comfort Measures: Not Applicable - Core Measures Any of the following diagnoses?: none Exam - Constitutional Vitals: Temp Pulse Resp BP Pulse Ox 98.5 F 96 H 18 172/93 99 01/29/21 17:47 01/29/21 17:47 01/29/21 17:47 01/29/21 17:47 01/29/21 17:47 General appearance: Present: no acute distress, well-nourished - EENT Eyes: Present: PERRL, EOM intact - Neck Neck: Present: supple, normal ROM - Respiratory Respiratory effort: normal Respiratory: bilateral: diminished, negative: rales, rhonchi, wheezing - Cardiovascular Rhythm: regular Heart Sounds: Present: S1 & S2 - Extremities Extremities: no ischemia, No edema - Abdominal General gastrointestinal: Present: soft, non-tender, non-distended, normal bowel sounds - Integumentary Integumentary: Present: clear, warm - Musculoskeletal Musculoskeletal: strength equal bilaterally, generalized weakness - Psychiatric Psychiatric: appropriate mood/affect, cooperative - Neurologic Neurologic: moves all extremities Plan Activity: no restrictions Diet: advance as tolerated (High-fiber diet) Additional Instructions: High fiber diet. If you have worsening symptoms contact MD or go to emergency room. F/u surgery/GI in 2 weeks. Recommend colonoscopy in 6 weeks as pt has never had a colonoscopy. If you have worsening symptoms contact MD or go to the nearest emergency room as needed Follow up with: JEFFREY REID [Other] - 7 Days Prescriptions: levoFLOXacin [Levaquin TAB] 500 mg PO QDAY #7 tablet
--- NOTE | 2021-01-29 20:15 | Event Note ---
Date: 01/29/21 I called [facility] at [phone] and discussed in detail with [place] physician about the patient's progress in her condition, and her surgeon cleared for discharge,Discharge planning and discharge instructions. She verbalized understanding and was appreciative of my call. I informed patient's nurse about my conversation with [place] physician.
[2021-01-29 22:04] VITALS: BP 122/65
== END 2021-01-29 20:50 | disposition home or self-care (01) | DRG 391 ==
LOC: ED 06:44 → 3A 17:18 → 3B 18:55 → 3B-SURG 19:47
PROVIDERS: ADMIT Internal Medicine; ATTEND Internal Medicine
DX: K57.92 Diverticulitis of intestine, part unspecified, without perforation or abscess without bleeding (principal); N17.0 Acute kidney failure with tubular necrosis; R65.10 Systemic inflammatory response syndrome (SIRS) of non-infectious origin without acute organ dysfunction; Z68.41 Body mass index [BMI] 40.0-44.9, adult; I10 Essential (primary) hypertension; E66.01 Morbid (severe) obesity due to excess calories; E11.9 Type 2 diabetes mellitus without complications; D72.829 Elevated white blood cell count, unspecified; F17.200 Nicotine dependence, unspecified, uncomplicated; Z71.6 Tobacco abuse counseling; Z98.51 Tubal ligation status; Z79.899 Other long term (current) drug therapy
CPT/HCPCS: 36415; 74177; 80048; 80053; 81001; 82140; 82962; 83036; 83690; 85007; 85025; 87040; 87086; 96365; 96366; 96367; 96368; 96375; G0378; J1170; J1200; J1644; J1956; J2543; J2765; J7030; J7042; Q9967